=== PATIENT | female | born 1960 | race Caucasian/White ===

== ENCOUNTER 2018-12-19 14:30 | Outpatient (CLI) | payer OTHER | END 2018-12-19 14:45 | LOC: MERGE 14:30 → POD 14:30 | PROVIDERS: ATTEND Podiatrist Foot & Ankle Surgery | DX: L60.0 Ingrowing nail (principal) | CPT/HCPCS: 99213 ==

== ENCOUNTER 2018-12-26 11:31 | Outpatient (CLI) | payer OTHER ==
--- NOTE | 2019-01-03 08:00 | OP Clinic Progress Note ---
DATE OF VISIT: 12/26/2018 SUBJECTIVE: Josseline Inman is a 58-year-old female presenting to clinic today for follow-up of a right great toe lateral partial nail avulsion with chemical matrixectomy. The patient has been doing Epsom salt soaks in water and doing everything according to previous instructions. She is here for follow-up. She does not admit to any issues but just minor pain and discomfort noted at times but it is less than ever before. She states that she is doing well. She does not admit to any fevers, chills, nausea, vomiting, shortness of breath or chest pain. OBJECTIVE: Vitals: Temperature 98.3, heart rate 69, respiration rate 18, blood pressure 155/86. O2 saturation is 96% on room air. Vascular: 2+ DP and PT pulses, right foot. Capillary refill time is less than 3 seconds to the toes of the right foot. There is no real edema noted, right foot. Dermatologic: There is a mild fibrous plug noted in the lateral aspect of the right great toenail where the procedure was performed. This was debrided today with a small curette. The patient tolerated this well. This does not count as an official procedure, however. Triple antibiotic ointment and a Band-Aid was applied today. The patient was encouraged to continue applying antibiotic ointment and a Band-Aid daily for 1 week and then to switch to just a dry Band-Aid for 1 week. The patient will do this for the next 2 weeks and we will see her in 2 weeks for follow-up to make sure she has healed beautifully. She may continue her Epsom salt soaks and everything as previously discussed. Return to the clinic in 2 weeks. She has no further questions or concerns. Osmany Crespo D.P.M. (Dictated/Not Signed) Jonathan Job#: [id number] MTDD
== END 2018-12-26 12:00 ==
LOC: MERGE 11:31 → POD 11:31
PROVIDERS: ATTEND Podiatrist Foot & Ankle Surgery
DX: L60.0 Ingrowing nail (principal)
CPT/HCPCS: 11042; 99213